=== PATIENT | female | born 1960 | race Caucasian/White ===

== ENCOUNTER 2021-09-16 08:58 | Inpatient (IN) | payer BC ==
[~2021-09-16] VITALS: Ht 149.9 cm; Wt 43.0 kg
[2021-09-16] MEDS ORDERED: ondansetron/PF 4mg/2ml inj IV ONE (09:20)
[2021-09-16 09:57] LABS: BASOPHILS % (AUTO) 0.2 % (0-1); EOSINOPHILS % (AUTO) 0 % (0-6); HEMATOCRIT 34.1 % (35.0-45.0); HEMOGLOBIN 11.1 g/dl (12.0-16.0); LYMPHOCYTES # (AUTO) 1.2 X10'3 (1.1-4.8); MEAN CORPUSCULAR HEMOGLOBIN 27.9 PG (27.0-31.0); MEAN CORPUSCULAR HGB CONC 32.5 g/dL (33.0-36.5); MEAN CORPUSCULAR VOLUME 85.7 FL (78-98); MEAN PLATELET VOLUME 9.1 FL (7.4-10.4); MONOCYTES # (AUTO) 1.9 X10'3 (0-0.9); MONOCYTES % (AUTO) 6.5 % (2-12); NEUTROPHILS # (AUTO) 26.8 X10'3 (1.8-7.7); NEUTROPHILS % (AUTO) 89.3 % (42-75); PLATELET COUNT 191 X10'3 (140-440); RED BLOOD COUNT 3.98 X10'6 (4.20-5.60); RED CELL DISTRIBUTION WIDTH 18.3 % (11.5-14.5)
[2021-09-16 10:00] LABS: APTT 39 SECONDS (22-32)
[2021-09-16 10:03] LABS: ALANINE AMINOTRANSFERASE 30 U/L (12-78); ALBUMIN 2.6 G/DL (3.4-5.0); ALKALINE PHOSPHATASE 85 IU/L (46-116); ANION GAP 10 (8-16); ASPARTATE AMINO TRANSFERASE 88 U/L (10-37); BILIRUBIN,TOTAL 4.4 MG/DL (0.1-1.0); BLOOD UREA NITROGEN 11 MG/DL (7-18); BUN/CREATININE RATIO 9.1 (6.6-38.0); CALCIUM 7.6 MG/DL (8.5-10.1); CHLORIDE 93 MMOL/L (99-107); CREATININE 1.21 MG/DL (0.40-0.90); GLUCOSE 63 MG/DL (70-104); POTASSIUM 3.7 MMOL/L (3.5-5.1); SODIUM 129 MMOL/L (135-145); eGFR 45 ML/MIN
[2021-09-16 10:04] LABS: LIPASE 1755 U/L (73-393)
[2021-09-16] MEDS ORDERED: normal saline 1000ML IV soln IV ONE (10:10)
[2021-09-16 10:15] LABS: ALBUMIN/GLOBULIN RATIO 0.8 (1.1-1.5)
[2021-09-16 10:20] LABS: MAGNESIUM 1.1 MG/DL (1.5-2.4)
[2021-09-16] MEDS ORDERED: sodium bicarbonate (8.4%) inj. 100 MEQ in dextrose 5%-water 1,000 ML IV ONE (10:20)
[2021-09-16 10:28] LABS: PLATELET ESTIMATE NORMAL; TOTAL CELLS COUNTED 100; TOXIC GRANULATION 1+
[2021-09-16 10:29] LABS: ANISOCYTOSIS 2+; POIKILOCYTOSIS 1+; POLYCHROMASIA 1+
[2021-09-16 11:33] LABS: CLARITY,URINE CLOUDY (Clear); GLUCOSE, URINE 100 mg/dl (Neg); KETONES,URINE 15 mg/dl (Neg); LEUKOCYTE ESTERASE ,URINE SMALL (Neg); NITRITES, URINE NEGATIVE (Neg); OCCULT BLOOD,URINE LARGE (Neg); PROTEIN,URINE 30 mg/dl (Neg)
[2021-09-16 11:39] LABS: COLOR,URINE AMBER (Yellow); UA COLLECTION TYPE STRAIGHT CATH
[2021-09-16 11:42] LABS: RBC,URINE 20-50 /HPF (0-2); WBC,URINE 30-50 /HPF (0-4)
[2021-09-16 11:43] LABS: BACTERIA,URINE 1+ /HPF (Neg); FINE GRANULAR CAST 0-3 /LPF (NEGATIVE); HYALINE CASTS 0-3 /LPF (NEGATIVE); MUCUS STRANDS NONE SEEN /LPF (Neg); RENAL CELLS, URINE FEW /HPF; SQUAMOUS EPITHELIAL CELL,UR NONE SEEN /LPF (FEW); WBC CLUMPS,URINE FEW /HPF (NEGATIVE)
[2021-09-16 11:44] LABS: BILIRUBIN,DIRECT 2.1 MG/DL (0-0.3)
[2021-09-16] MEDS ORDERED: dextrose 5%-normal saline 1,000 ML IV SCH (11:50)
[2021-09-16] MEDS ORDERED: cefepime 2g/NS 100ml ADVANTAGE 100 ML IV SCH ×2 (12:00→20:00)
[2021-09-16] MEDS ORDERED: magnesium 2GM in 50ml NS 50 ML IV ONE (12:15)
[2021-09-16] MEDS ORDERED: LORA-269 PO (12:40)
[2021-09-16] MEDS ORDERED: DIPH-186 PO (12:40)
[2021-09-16] MEDS ORDERED: TRAM50TA2 PO (12:40)
[2021-09-16 13:03] LABS: OCCULT BLOOD STOOL NEGATIVE (Neg)
[2021-09-16] MEDS ORDERED: DIPH25CA83 PO (13:04)
[2021-09-16] MEDS ORDERED: FURO-150 PO (13:04)
[2021-09-16] MEDS ORDERED: ONDA-103 PO (13:04)
[2021-09-16] MEDS ORDERED: MAGN400C PO (13:04)
[2021-09-16] MEDS ORDERED: NADO40TA4 PO (13:04)
[2021-09-16] MEDS ORDERED: FLUT12AE4 IH (13:04)
[2021-09-16] MEDS ORDERED: AZEL30SP3 BOTHNARES (13:04)
[2021-09-16] MEDS ORDERED: SPIR100T5 PO (13:04)
[2021-09-16] MEDS ORDERED: CALC3.7S5 BOTHNARES (13:04)
[2021-09-16] MEDS ORDERED: CALC-723 PO (13:04)
[2021-09-16] MEDS ORDERED: OMEP20CA16 PO (13:04)
[2021-09-16] MEDS ORDERED: HYDROcodone/acetaminophen 10/325mg tab PO PRN (13:10)
[2021-09-16] MEDS ORDERED: magnesium 2GM in 50ml NS 50 ML IV PRN (13:10)
[2021-09-16] MEDS ORDERED: POTASSIUM BICARB 20meq eff tab 20 MEQ TABLET.EFF PO PRN ×2 (13:10)
[2021-09-16] MEDS ORDERED: magnesium Cl slow-release 64mg tablet PO PRN (13:10)
[2021-09-16] MEDS ORDERED: morphine 2 MG/ML inj. syringe IV PRN ×2 (13:10)
[2021-09-16] MEDS ORDERED: normal saline 1000ml 1,000 ML IV SCH (13:10)
[2021-09-16] MEDS ORDERED: ondansetron/PF 4mg/2ml inj IV PRN (13:10)
[2021-09-16] MEDS ORDERED: acetaminophen 325mg tablet PO PRN ×2 (13:10)
[2021-09-16] MEDS ORDERED: magnesium 4gm in 100ml NS 100 ML IV PRN (13:10)
[2021-09-16] MEDS ORDERED: HYDROcodone/acetaminophen 5mg/325mg tablet PO PRN (13:10)
[2021-09-16] MEDS ORDERED: bisacodyl 10mg suppository rectal RC PRN (13:10)
[2021-09-16] MEDS ORDERED: azelastine Nasal Spray bottle NS PRN (13:15)
[2021-09-16 15:53] VITALS: BP 106/55
[2021-09-16 16:19] LABS: BASOPHILS # (AUTO) 0.2 X10'3 (0-0.2); BASOPHILS % (AUTO) 0.7 % (0-1); EOSINOPHILS # (AUTO) 0.1 X10'3 (0-0.9); EOSINOPHILS % (AUTO) 0.5 % (0-6); HEMATOCRIT 32.4 % (35.0-45.0); HEMOGLOBIN 10.7 g/dl (12.0-16.0); LYMPHOCYTES # (AUTO) 0.9 X10'3 (1.1-4.8); LYMPHOCYTES % (AUTO) 3.8 % (21-51); MEAN CORPUSCULAR HGB CONC 32.9 g/dL (33.0-36.5); MEAN CORPUSCULAR VOLUME 85.3 FL (78-98); MEAN PLATELET VOLUME 8.8 FL (7.4-10.4); MONOCYTES # (AUTO) 1.4 X10'3 (0-0.9); MONOCYTES % (AUTO) 5.5 % (2-12); NEUTROPHILS # (AUTO) 21.9 X10'3 (1.8-7.7); NEUTROPHILS % (AUTO) 89.5 % (42-75); PLATELET COUNT 155 X10'3 (140-440); RED CELL DISTRIBUTION WIDTH 18.3 % (11.5-14.5); WHITE BLOOD COUNT 24.4 X10'3 (4.5-11.0)
[2021-09-16] MEDS: piperacillin/tazo 3.375gm/50ml 50 ML IV SCH (17:17)
[2021-09-16 18:00] VITALS: BP 106/49
--- NOTE | 2021-09-16 18:30 | NUR ---
Received report from Heather MERCADO
--- NOTE | 2021-09-16 19:45 | NUR ---
Checked patients blood sugar due to patient being NPO and low blood sugar on AM labs, patients blood sugar 66. MD called and orders received to change IV fluids.
[2021-09-16] MEDS: albuterol 2.5 MG/3 ML nebule NEB SCH (19:46)
[2021-09-16] MEDS: budesonide 0.5mg/2ml UD nebule IH SCH (19:46)
[2021-09-16] MEDS: K and/or MAG REPLACEMENT MC SCH (20:00)
[2021-09-16] MEDS: potassium CL 20mEq in D5-1/2NS 1,000 ML IV SCH (20:10)
[2021-09-16 22:00] VITALS: BP 115/53
[2021-09-17] MEDS: piperacillin/tazo 3.375gm/50ml 50 ML IV SCH ×3 (00:05→16:10)
--- NOTE | 2021-09-17 02:00 | NUR ---
Spoke with MD about low urine output, bolus ordered.
[2021-09-17] MEDS ORDERED: normal saline 500ml IV soln 500 ML IV ONE (02:20)
[2021-09-17] MEDS: albuterol 2.5 MG/3 ML nebule NEB SCH ×4 (02:27→20:13)
[2021-09-17] MEDS: potassium CL 20mEq in D5-1/2NS 1,000 ML IV SCH ×3 (05:10→22:09)
[2021-09-17 06:00] VITALS: BP 113/46
--- NOTE | 2021-09-17 06:32 | NUR ---
Problems reprioritized. Patient report given, questions answered & plan of care reviewed with Erin MERCADO.
[2021-09-17 07:23] LABS: HEMATOCRIT 28.5 % (35.0-45.0); HEMOGLOBIN 9.3 g/dl (12.0-16.0); MEAN CORPUSCULAR HEMOGLOBIN 28.3 PG (27.0-31.0); MEAN CORPUSCULAR HGB CONC 32.7 g/dL (33.0-36.5); MEAN CORPUSCULAR VOLUME 86.5 FL (78-98); MEAN PLATELET VOLUME 8.8 FL (7.4-10.4); PLATELET COUNT 117 X10'3 (140-440); RED BLOOD COUNT 3.29 X10'6 (4.20-5.60); RED CELL DISTRIBUTION WIDTH 18.3 % (11.5-14.5); WHITE BLOOD COUNT 15.5 X10'3 (4.5-11.0)
[2021-09-17] MEDS ORDERED: CALCITONIN SALMON SYNTHETIC BOTHNARES SCH (08:00)
[2021-09-17] MEDS: K and/or MAG REPLACEMENT MC SCH ×2 (08:00→18:57)
[2021-09-17 08:07] LABS: ALANINE AMINOTRANSFERASE 56 U/L (12-78); ALBUMIN 2.3 G/DL (3.4-5.0); ANION GAP 10 (8-16); ASPARTATE AMINO TRANSFERASE 128 U/L (10-37); BILIRUBIN,TOTAL 4.5 MG/DL (0.1-1.0); BLOOD UREA NITROGEN 14 MG/DL (7-18); BUN/CREATININE RATIO 12.7 (6.6-38.0); CALCIUM 6.6 MG/DL (8.5-10.1); CHLORIDE 95 MMOL/L (99-107); GLUCOSE 158 MG/DL (70-104); HDL CHOLESTEROL 37 MG/DL (35-60); LDL CHOLESTEROL 52 MG/DL (50-100); POTASSIUM 3.2 MMOL/L (3.5-5.1); SODIUM 129 MMOL/L (135-145); TOTAL CARBON DIOXIDE 24.3 MMOL/L (24-32); eGFR 50 ML/MIN
[2021-09-17 08:17] LABS: ANISOCYTOSIS 2+; ELLIPTOCYTES FEW; PLATELET ESTIMATE DECREASED; POIKILOCYTOSIS FEW; TARGET CELLS FEW; TOTAL CELLS COUNTED 100
[2021-09-17 08:20] LABS: ALKALINE PHOSPHATASE 74 IU/L (46-116)
[2021-09-17 08:21] LABS: ALBUMIN/GLOBULIN RATIO 0.8 (1.1-1.5); CHOL/HDL RATIO 4.3 (0.00-4.99); CHOLESTEROL 159 MG/DL (0-200); TOTAL PROTEIN 5.1 G/DL (6.4-8.2); TRIGLYCERIDES 142 MG/DL (20-135)
[2021-09-17] MEDS: LORazepam 1 MG tablet PO SCH (08:28)
[2021-09-17] MEDS: pantoprazole 40mg Tablet.DR PO SCH (08:29)
[2021-09-17] MEDS: metoprolol tartrate 50mg tablet PO SCH ×2 (08:29→19:51)
[2021-09-17] MEDS: budesonide 0.5mg/2ml UD nebule IH SCH ×2 (09:00→20:13)
[2021-09-17] MEDS: potassium CL 10mEq/100ml bag 100 ML IV PRN ×4 (09:49→13:32)
[2021-09-17 10:00] VITALS: BP 91/52
--- NOTE | 2021-09-17 11:08 | NUR ---
Malnutrition consult: Pt seen at bedside reports poor PO intake since Sunday (09/11) resulting in 6 lb wt loss. Per pt she currently weighs 95 lbs which was taken at home on (09/15) and her UBW fluctuates from 95-110 lbs. Per pt report it appears that pt experienced insufficient PO intake [employer] though unsure of reported wt loss d/t reported ABW being 100% of reported UBW. Pt currently NPO though reports hunger and desire to eat. Pt appears thin but not cachectic with no significant visible fat or muscle wasting. Per EMR pt with no significant decrease in muscle strength or edema. Pt currently lacks a minimum of two criteria for malnutrition though at high risk if to remain NPO for a prolonged period of time d/t likely poor PO intake [employer]. Will continue to monitor qualifying criteria for malnutrition. Pt denies any difficulty chewing or swallowing and reports food allergies to: corn, avocado, lettuce, gluten, and peanuts; though does not describe symptoms that would occur should these items be consumed and reports she was told about these allergies following a food allergen test on her back. Pt declines gluten free options and states she likes: meats, fish, potatoes, rice, veggies, and cabbage. All food preferences were d/w dietary. Pt provided with RD contact information and encouraged to reach out if needed. Will continue to follow. Addendum: 09/17/21 at [address] Amended: Links added.
[2021-09-17 11:16] LABS: LIPASE 535 U/L (73-393); MAGNESIUM 3.2 MG/DL (1.5-2.4)
--- NOTE | 2021-09-17 13:26 | NUR ---
lab unable to get PT/INR to run today. The have drawn pt multiple times. Dr Alvares aware and lab canceled for today
[2021-09-17 14:00] VITALS: BP 101/47
[2021-09-17 18:00] VITALS: BP 97/48
--- NOTE | 2021-09-17 18:44 | NUR ---
Report given to Becky Pena RN, pt in room eating dinner, she started a clear liquid tray and was encouraged to go very slow and if she is painful to let us know. Pt doing well and is becoming more ambulatory and feels like she will be ready to go home tomorrow possibly.
--- NOTE | 2021-09-17 18:45 | NUR ---
Patient in room [facility] 4009. I have received report from CINDY MERCADO and had the opportunity to ask questions and assume patient care.
[2021-09-17 19:50] VITALS: BP 104/49
[2021-09-17 22:00] VITALS: BP 101/66
[2021-09-18] MEDS: piperacillin/tazo 3.375gm/50ml 50 ML IV SCH ×2 (00:06→08:40)
[2021-09-18] MEDS: albuterol 2.5 MG/3 ML nebule NEB SCH ×2 (01:52→09:11)
[2021-09-18 06:00] VITALS: BP 100/56
--- NOTE | 2021-09-18 06:30 | NUR ---
Problems reprioritized. Patient report given, questions answered & plan of care reviewed with CINDY MERCADO.
[2021-09-18 06:33] LABS: HEMOGLOBIN 9.5 g/dl (12.0-16.0); MEAN CORPUSCULAR HEMOGLOBIN 28.7 PG (27.0-31.0); MEAN CORPUSCULAR HGB CONC 33.9 g/dL (33.0-36.5); MEAN CORPUSCULAR VOLUME 84.7 FL (78-98); MEAN PLATELET VOLUME 8.5 FL (7.4-10.4); PLATELET COUNT 98 X10'3 (140-440); RED BLOOD COUNT 3.31 X10'6 (4.20-5.60); RED CELL DISTRIBUTION WIDTH 18.1 % (11.5-14.5); WHITE BLOOD COUNT 9.8 X10'3 (4.5-11.0)
[2021-09-18 07:00] LABS: ALANINE AMINOTRANSFERASE 144 U/L (12-78); ALBUMIN 2.3 G/DL (3.4-5.0); ALKALINE PHOSPHATASE 80 IU/L (46-116); ANION GAP 6 (8-16); ASPARTATE AMINO TRANSFERASE 246 U/L (10-37); BILIRUBIN,TOTAL 5.4 MG/DL (0.1-1.0); BLOOD UREA NITROGEN 10 MG/DL (7-18); BUN/CREATININE RATIO 11.9 (6.6-38.0); CALCIUM 6.9 MG/DL (8.5-10.1); CHLORIDE 98 MMOL/L (99-107); CREATININE 0.84 MG/DL (0.40-0.90); GLUCOSE 131 MG/DL (70-104); POTASSIUM 3.7 MMOL/L (3.5-5.1); SODIUM 128 MMOL/L (135-145); TOTAL CARBON DIOXIDE 24.1 MMOL/L (24-32); eGFR 69 ML/MIN
[2021-09-18 07:05] LABS: ALBUMIN/GLOBULIN RATIO 0.8 (1.1-1.5); TOTAL PROTEIN 5.2 G/DL (6.4-8.2)
[2021-09-18 07:30] VITALS: BP 96/49
[2021-09-18 07:51] LABS: TOTAL CELLS COUNTED 100
[2021-09-18 07:52] LABS: ACANTHOCYTES 1+; ANISOCYTOSIS 2+; ELLIPTOCYTES 1+; PLATELET ESTIMATE DECREASED; POLYCHROMASIA FEW; SCHISTOCYTES FEW; TARGET CELLS FEW
[2021-09-18] MEDS: metoprolol tartrate 50mg tablet PO SCH (08:00)
[2021-09-18] MEDS: K and/or MAG REPLACEMENT MC SCH (08:00)
[2021-09-18] MEDS: LORazepam 1 MG tablet PO SCH (08:00)
[2021-09-18] MEDS: pantoprazole 40mg Tablet.DR PO SCH (08:40)
[2021-09-18] MEDS: budesonide 0.5mg/2ml UD nebule IH SCH (09:11)
[2021-09-18] MEDS ORDERED: SPIR25TA5 PO (09:49)
[2021-09-18 10:35] VITALS: BP 102/50
--- NOTE | 2021-09-18 11:33 | NUR ---
Patient discharged home with . 2x iv dc'd. Tele taken off and returned. All belongings taken from room. Pt does not complain of pain or discomfort and states understanding of discharge instructions and states she feels well enough to go home. Pt appears stable and appropriate for discharge. Pt will f/u with pcp
== END 2021-09-18 11:33 | disposition home or self-care (01) | DRG 871 ==
LOC: ER 08:59 → UNDOADMIN 13:12 → ED HOLD 13:12 → EDBEDREQ 14:29 → ORTHO 4S 15:30 → ED HOLD 15:30 → UNDODISIN 09-18 11:33
PROVIDERS: ADMIT Internal Medicine; ATTEND Internal Medicine
DX: A41.9 Sepsis, unspecified organism (principal); K85.90 Acute pancreatitis without necrosis or infection, unspecified; E87.1 Hypo-osmolality and hyponatremia; N39.0 Urinary tract infection, site not specified; E78.1 Pure hyperglyceridemia; D63.8 Anemia in other chronic diseases classified elsewhere; E83.42 Hypomagnesemia; F12.90 Cannabis use, unspecified, uncomplicated; E87.6 Hypokalemia; J44.9 Chronic obstructive pulmonary disease, unspecified; K70.30 Alcoholic cirrhosis of liver without ascites; N18.9 Chronic kidney disease, unspecified; K57.90 Diverticulosis of intestine, part unspecified, without perforation or abscess without bleeding; K58.9 Irritable bowel syndrome, unspecified; Z87.891 Personal history of nicotine dependence; Z90.710 Acquired absence of both cervix and uterus; Z88.0 Allergy status to penicillin
CPT/HCPCS: 36415; 71045; 74176; 76700; 80053; 80061; 81001; 82248; 82272; 82948; 83605; 83690; 83735; 84145; 85007; 85025; 85610; 85730; 87040; 87081; 87088; 93005; 94640; 94760; 97116; 97161; 97530; 99285; A4353; G0378; J0692; J2405; J2543; J3475; J3480; J7030; J7040; J7042

== ENCOUNTER 2022-01-26 13:43 | Inpatient (IN) | payer BC ==
[~2022-01-26] VITALS: Ht 149.9 cm; Wt 40.9 kg
[~2022-01-26 13:43] MED LIST: AZEL30SP3 BOTHNARES; CALC-723 PO; CALC3.7S5 BOTHNARES; DIPH-186 PO; DIPH25CA83 PO; FLUT12AE4 IH; LORA-269 PO; MAGN400C PO; NADO40TA4 PO; OMEP20CA16 PO; ONDA-103 PO; SPIR25TA5 PO; TRAM50TA2 PO
[2022-01-26 15:04] LABS: APTT 35 SECONDS (22-32)
[2022-01-26 15:11] LABS: MEAN CORPUSCULAR HEMOGLOBIN 21.5 PG (27.0-31.0); WHITE BLOOD COUNT 5.2 X10'3 (4.5-11.0)
[2022-01-26 15:13] LABS: HEMATOCRIT 22.3 % (35.0-45.0); MEAN CORPUSCULAR HGB CONC 30.5 g/dL (33.0-36.5); MEAN CORPUSCULAR VOLUME 70.5 FL (78-98); MEAN PLATELET VOLUME 8.2 FL (7.4-10.4); PLATELET COUNT 180 X10'3 (140-440); RED BLOOD COUNT 3.17 X10'6 (4.20-5.60); RED CELL DISTRIBUTION WIDTH 24.9 % (11.5-14.5)
[2022-01-26 15:15] LABS: HEMOGLOBIN 6.8 g/dl (12.0-16.0)
[2022-01-26 15:36] LABS: ALANINE AMINOTRANSFERASE 35 U/L (12-78); ALBUMIN 2.6 G/DL (3.4-5.0); ALBUMIN/GLOBULIN RATIO 0.8 (1.1-1.5); ALKALINE PHOSPHATASE 65 IU/L (46-116); ANION GAP 12 (8-16); BILIRUBIN,TOTAL 2.6 MG/DL (0.1-1.0); BLOOD UREA NITROGEN 8 MG/DL (7-18); BUN/CREATININE RATIO 9.5 (6.6-38.0); CALCIUM 8.1 MG/DL (8.5-10.1); CHLORIDE 101 MMOL/L (99-107); CREATININE 0.84 MG/DL (0.40-0.90); GLUCOSE 121 MG/DL (70-104); SODIUM 134 MMOL/L (135-145); TOTAL CARBON DIOXIDE 21.1 MMOL/L (24-32); eGFR 68 ML/MIN
[2022-01-26 15:45] LABS: ASPARTATE AMINO TRANSFERASE 99 U/L (10-37); POTASSIUM 4.9 MMOL/L (3.5-5.1)
[2022-01-26] MEDS ORDERED: magnesium 4gm in 100ml NS 100 ML IV PRN (15:45)
[2022-01-26] MEDS ORDERED: ondansetron/PF 4mg/2ml inj IV PRN (15:45)
[2022-01-26] MEDS ORDERED: magnesium Cl slow-release 64mg tablet PO PRN (15:45)
[2022-01-26] MEDS ORDERED: potassium Cl 40MEQ/1/2NS 520ml 520 ML IV PRN (15:45)
[2022-01-26] MEDS ORDERED: acetaminophen 325mg tablet PO PRN (15:45)
[2022-01-26] MEDS ORDERED: potassium Cl 20 mEq SR tablet PO PRN ×2 (15:45)
[2022-01-26 15:48] LABS: ANISOCYTOSIS 3+; MICROCYTOSIS 1+; NUCLEATED RED BLOOD CELLS 1 /100WBC (0-0); PLATELET ESTIMATE NORMAL; POLYCHROMASIA 1+; SMUDGE CELLS 1+; TOTAL CELLS COUNTED 100
[2022-01-26 15:49] LABS: GIANT PLATELET FEW; HYPOCHROMASIA 2+; LARGE PLATELETS MODERATE; SCHISTOCYTES 1+; TARGET CELLS FEW
[2022-01-26 15:52] LABS: ACANTHOCYTES 1+; ELLIPTOCYTES 1+; POIKILOCYTOSIS 3+
[2022-01-26] MEDS ORDERED: RIFA550T PO (15:53)
[2022-01-26] MEDS ORDERED: NADO40TA3 PO (15:53)
[2022-01-26] MEDS ORDERED: SPIR100T5 PO (15:54)
[2022-01-26] MEDS: normal saline 1000ml 1,000 ML IV SCH (16:18)
[2022-01-26] MEDS: K and/or MAG REPLACEMENT MC SCH (19:14)
[2022-01-26 19:31] VITALS: BP 100/60
[2022-01-26 19:48] VITALS: BP 98/55
[2022-01-26 20:48] VITALS: BP 105/55
--- NOTE | 2022-01-26 21:15 | NUR ---
REVIEWED GENERAL ASSESSMENT. PT AAOX4, NO DIZZINESS, NO SOB, VVS.
[2022-01-26 21:47] VITALS: BP 100/59
[2022-01-26 22:22] VITALS: BP 92/62
[2022-01-27 00:33] VITALS: BP 111/53
[2022-01-27 00:53] VITALS: BP 110/57
[2022-01-27] MEDS: normal saline 1000ml 1,000 ML IV SCH ×2 (01:44→10:09)
[2022-01-27 01:53] VITALS: BP 112/54
[2022-01-27 02:28] VITALS: BP 100/60
[2022-01-27] MEDS: K and/or MAG REPLACEMENT MC SCH (06:50)
--- NOTE | 2022-01-27 08:17 | NUR ---
Received patient to room 355A. Patient is alert and oriented in no apparent acute distress. Patient appears to be SOB and states she had ambulated to the bathroom and back. Patient reports she has COPD. VS 98.2, 128/58, 63, 22, 98%RA and denies any pain. Patient oriented to room and call light. Call light placed within patient's reach, bed low and locked. Will notify Dr. Barajas patient requesting order for breathing treatment.
[2022-01-27 08:20] VITALS: BP 128/58
--- NOTE | 2022-01-27 08:22 | NUR ---
PAGER ID: [phone] MESSAGE: [id number]- Savannah Monae- pt appears SOB. states she has COPD and normally has neb treatments. Ok to order breathing treatment? 128/58, 98.2, 73, 22, 98RA- [facility] [phone]
[2022-01-27] MEDS ORDERED: albuterol 2.5 MG/3 ML nebule NEB PRN (09:45)
[2022-01-27] MEDS ORDERED: budesonide 0.5mg/2ml UD nebule IH SCH (09:45)
[2022-01-27 09:59] LABS: BASOPHILS # (AUTO) 0.1 X10'3 (0-0.2); BASOPHILS % (AUTO) 1.1 % (0-1); EOSINOPHILS # (AUTO) 0.1 X10'3 (0-0.9); EOSINOPHILS % (AUTO) 0.9 % (0-6); HEMOGLOBIN 11.1 g/dl (12.0-16.0); LYMPHOCYTES # (AUTO) 0.4 X10'3 (1.1-4.8); MEAN CORPUSCULAR HEMOGLOBIN 24.1 PG (27.0-31.0); MEAN CORPUSCULAR HGB CONC 31.9 g/dL (33.0-36.5); MEAN CORPUSCULAR VOLUME 75.7 FL (78-98); MEAN PLATELET VOLUME 8.5 FL (7.4-10.4); MONOCYTES # (AUTO) 1.6 X10'3 (0-0.9); MONOCYTES % (AUTO) 22.2 % (2-12); NEUTROPHILS % (AUTO) 70.8 % (42-75); PLATELET COUNT 173 X10'3 (140-440); RED BLOOD COUNT 4.62 X10'6 (4.20-5.60); RED CELL DISTRIBUTION WIDTH 24.3 % (11.5-14.5)
[2022-01-27 10:13] LABS: ALBUMIN 2.7 G/DL (3.4-5.0); BLOOD UREA NITROGEN 7 MG/DL (7-18); BUN/CREATININE RATIO 10.6 (6.6-38.0); CALCIUM 8.5 MG/DL (8.5-10.1); CHLORIDE 103 MMOL/L (99-107); CREATININE 0.66 MG/DL (0.40-0.90); GLUCOSE 92 MG/DL (70-104); MAGNESIUM 1.3 MG/DL (1.5-2.4); POTASSIUM 4.4 MMOL/L (3.5-5.1); TOTAL CARBON DIOXIDE 23.2 MMOL/L (24-32); eGFR 90 ML/MIN
[2022-01-27 10:27] LABS: ANION GAP 14 (8-16); SODIUM 140 MMOL/L (135-145)
[2022-01-27 12:29] VITALS: BP 110/62
--- NOTE | 2022-01-27 13:21 | NUR ---
Patient alert and oriented in no apparent acute distress. Discussed with patient dc instructions. Patient verbalizes understanding of teaching. Patient spouse at bedside.
--- NOTE | 2022-01-27 13:30 | NUR ---
Patient dc'd with all personal belongings accompanied by pct and spouse.
[2022-02-01 12:53] LABS: OCCULT BLOOD STOOL NEGATIVE (Neg)
== END 2022-01-27 13:30 | disposition home or self-care (01) | DRG 812 ==
LOC: ER 13:43 → ED HOLD 15:49 → SUR 3N 01-27 08:30
PROVIDERS: ADMIT Internal Medicine; ATTEND Internal Medicine
PROC: 30233N1 Transfusion of Nonautologous Red Blood Cells into Peripheral Vein, Percutaneous Approach (ICD-10-PCS; principal; 2022-01-26)
DX: D64.9 Anemia, unspecified (principal); K92.2 Gastrointestinal hemorrhage, unspecified; J44.9 Chronic obstructive pulmonary disease, unspecified; K58.9 Irritable bowel syndrome, unspecified; K57.90 Diverticulosis of intestine, part unspecified, without perforation or abscess without bleeding; K70.30 Alcoholic cirrhosis of liver without ascites; Z87.891 Personal history of nicotine dependence; Z90.710 Acquired absence of both cervix and uterus; Z88.0 Allergy status to penicillin; Z79.899 Other long term (current) drug therapy; Z28.310 Unvaccinated for COVID-19
CPT/HCPCS: 36415; 36430; 80048; 80053; 82272; 83735; 85007; 85025; 85610; 85730; 86885; 86900; 86901; 86920; 94640; 94760; 99285; A6258; G0378; J7030; J7040; J7050; P9016

== ENCOUNTER 2022-04-17 14:12 | Emergency (ER) | payer BC ==
[~2022-04-17 14:12] MED LIST changes: -AZEL30SP3 BOTHNARES; -DIPH-186 PO; +NADO40TA3 PO; -NADO40TA4 PO; -OMEP20CA16 PO; -ONDA-103 PO; +RIFA550T PO; +SPIR100T5 PO; -SPIR25TA5 PO; -TRAM50TA2 PO
== END 2022-04-17 15:23 | disposition left against medical advice (07) ==
LOC: ER 14:14
DX: Z00.00 Encounter for general adult medical examination without abnormal findings (principal); Z53.21 Procedure and treatment not carried out due to patient leaving prior to being seen by health care provider

== ENCOUNTER 2022-04-17 16:02 | Emergency (ER) | payer BC | END 2022-04-17 17:07 | disposition left against medical advice (07) | LOC: ER 16:03 | DX: R10.9 Unspecified abdominal pain (principal); Z53.21 Procedure and treatment not carried out due to patient leaving prior to being seen by health care provider ==